=== PATIENT | female | born 1955 | race Caucasian/White ===

== ENCOUNTER 2016-10-18 10:58 | Day surgery (SDC) | payer MEDICAID ==
[~2016-10-18] VITALS: Ht 182.9 cm; Wt 72.0 kg
[2016-10-18 11:56] VITALS: BP 119/84
[2016-10-18] MEDS ORDERED: EMTR1TAB12 PO (12:00)
[2016-10-18] MEDS ORDERED: LACTATED RINGERS 1,000 ML IV SCH (12:03)
[2016-10-18] MEDS ORDERED: LIDOCAINE 1%, 2ML ONE (12:05)
[2016-10-18] MEDS ORDERED: FENTANYL PF 100 MCG/2ML ONE (12:20)
[2016-10-18] MEDS ORDERED: MIDAZOLAM 1 MG/ML, 2ML ONE (12:20)
[2016-10-18] MEDS ORDERED: EFAV600T PO (12:24)
[2016-10-18] MEDS ORDERED: LIDOCAINE 1%, 2ML SQ PRN (12:30)
[2016-10-18] MEDS ORDERED: PROPOFOL 10 MG/ML, 20ML ONE (12:48)
[2016-10-18] MEDS ORDERED: ONDANSETRON 2MG/ML, 2ML IVPush PRN (13:00)
[2016-10-18] MEDS ORDERED: LABETALOL 5MG/ML, 20ML IV PRN (13:00)
[2016-10-18] MEDS ORDERED: PROMETHAZINE 25 MG/ML, 1ML IV PRN (13:00)
[2016-10-18] MEDS ORDERED: METOCLOPRAMIDE 5 MG/ML, 2ML IV PRN (13:00)
[2016-10-18] MEDS ORDERED: OXYcodone 5 MG/5 ML ORAL.SOL UDC PO PRN (13:00)
[2016-10-18] MEDS ORDERED: HYDROmorphone 1 MG/ML, 1ML IV PRN (13:00)
[2016-10-18] MEDS ORDERED: hydrALAzine 20 MG/ML, 1ML IV PRN (13:00)
[2016-10-18] MEDS ORDERED: ACETAMINOPHEN 325 MG TABLET PO PRN (13:00)
[2016-10-18] MEDS ORDERED: FENTANYL PF 100 MCG/2ML IV PRN (13:00)
[2016-10-18] MEDS ORDERED: MEPERIDINE/PF 25MG/0.5ML IVPush PRN (13:00)
[2016-10-18] MEDS ORDERED: ACETAMINOPHEN 650 MG/20.3 ML UDC ONE (13:39)
[2016-10-18] MEDS ORDERED: OXYcodone IR 5MG TABLET ONE (15:19)
[2016-10-18] MEDS ORDERED: OXYcodone IR 5MG TABLET PO PRN (15:30)
== END 2016-10-18 17:00 | disposition home or self-care (01) ==
LOC: OUT 10:58
PROVIDERS: ATTEND Orthopaedic Surgery
DX: I96 Gangrene, not elsewhere classified (principal); F17.210 Nicotine dependence, cigarettes, uncomplicated; B20 Human immunodeficiency virus [HIV] disease
CPT/HCPCS: 28825; 88305; 93005; J2250; J2704; J3010; J3490; J7120

== ENCOUNTER 2020-10-22 15:03 | Inpatient (IN) | payer MEDICAID ==
[~2020-10-22] VITALS: Ht 182.9 cm; Wt 58.7 kg
[~2020-10-22 15:03] MED LIST: ANTIOBIOTIC PO; EFAV600T PO; EMTR1TAB8 PO; UNKNOWN ANTIBIOTIC PO
[2020-10-22] MEDS ORDERED: SODIUM CHLORIDE FLUSH 10ML SYR IVF ONE (15:30)
[2020-10-22 15:46] LABS: BASOPHILS % (AUTO) 1 % (0-1); EOSINOPHILS % (AUTO) 0 % (1-7); LYMPHOCYTES % (AUTO) 6 % (22-44); MEAN CORPUSCULAR HEMOGLOBIN 30.6 pg (27.5-34.5); MEAN PLATELET VOLUME 7.4 fL (7.4-10.4); MONOCYTES % (AUTO) 6 % (2-9); NEUTROPHILS % (AUTO) 87 % (42-75); PLATELET COUNT 417 x10^3/uL (130-400); RED BLOOD COUNT 3.79 x10^6/uL (4.38-5.82); RED CELL DISTRIBUTION WIDTH 13.8 % (9.4-14.8)
[2020-10-22 15:47] LABS: ALBUMIN 2.4 g/dL (3.4-5.0); ANION GAP 6 mmol/L (5-15); CALCIUM 9.5 mg/dL (8.5-10.1); CHLORIDE 102 mmol/L (98-107); CREATININE 0.95 mg/dL (0.7-1.3)
--- NOTE | 2020-10-22 16:43 | NUR ---
PT TO [facility] FROM [facility]
--- NOTE | 2020-10-22 17:19 | NUR ---
ASSUMED CARE OF PATIENT. PATIENT REPORTS HE WAS TESTED FOR COVID TODAY BECAUSE HE HAS HAD A COUGH AND SCRATCHY VOICE X10 DAYS. PT ALSO C/O A LARGE RIGHT NECK ABSCESS. 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 PT SEEN BY DR JAQUEZ. FAMILY AT BEDSIDE. CALL LIGHT IN PLACE. WILL CONTINUE TO MONITOR.
--- NOTE | 2020-10-22 17:38 | NUR ---
PT WENT TO CT
[2020-10-22] MEDS ORDERED: OMNIPAQUE 350 MG/ML, 100ML BOTTLE ONE (17:45)
[2020-10-22] MEDS ORDERED: [UNRECOGNIZED DRUG - OTHER] (17:57)
[2020-10-22] MEDS ORDERED: OXYMETAZOLINE NASAL SPRAY 0.05%,30ML ONE (19:36)
[2020-10-22] MEDS ORDERED: SODIUM CHLORIDE FLUSH 10ML SYR IVF PRN (20:00)
[2020-10-22] MEDS ORDERED: ONDANSETRON 2MG/ML, 2ML IVPush PRN (20:00)
[2020-10-22] MEDS ORDERED: OXYMETAZOLINE NASAL SPRAY 0.05%, 15ML NAS ONE (20:00)
[2020-10-22] MEDS ORDERED: morphine SULFATE 10 MG/ML, 1ML IVPush PRN (20:00)
[2020-10-22] MEDS ORDERED: BISACODYL 10 MG SUPP PR PRN (20:00)
[2020-10-22] MEDS ORDERED: D5%-0.45% NACL 1,000 ML IV SCH (20:00)
--- NOTE | 2020-10-22 21:18 | NUR ---
PT HAS BEEN SEEN BY ENT. PT READY FOR FLOOR.
[2020-10-22] MEDS ORDERED: DEXAMETHASONE 4 MG/ML, 1ML IVPush ONE (21:30)
[2020-10-22] MEDS ORDERED: DEXAMETHASONE 4 MG/ML, 1ML ONE (21:33)
[2020-10-22 22:01] VITALS: BP 106/72
[2020-10-22] MEDS ORDERED: DIPHENHYDRAMINE 50 MG/ML, 1ML IVPush ONE (23:00)
[2020-10-22] MEDS: NICOTINE 21 MG/24 HR PATCH.TD24 TD SCH (23:58)
[2020-10-23 02:00] VITALS: BP 101/68
[2020-10-23 05:02] LABS: BASOPHILS % (AUTO) 0 % (0-1); EOSINOPHILS % (AUTO) 0 % (1-7); LYMPHOCYTES % (AUTO) 4 % (22-44); MEAN CORPUSCULAR HEMOGLOBIN 30.6 pg (27.5-34.5); MEAN CORPUSCULAR HGB CONC 32.9 g/dL (33.2-36.2); MEAN PLATELET VOLUME 7.5 fL (7.4-10.4); MONOCYTES % (AUTO) 1 % (2-9); NEUTROPHILS % (AUTO) 94 % (42-75); PLATELET COUNT 320 x10^3/uL (130-400); RED BLOOD COUNT 3.53 x10^6/uL (4.38-5.82); RED CELL DISTRIBUTION WIDTH 13.9 % (9.4-14.8)
[2020-10-23 05:36] LABS: ANION GAP 6 mmol/L (5-15); CALCIUM 8.8 mg/dL (8.5-10.1); CHLORIDE 103 mmol/L (98-107); CREATININE 0.77 mg/dL (0.7-1.3)
[2020-10-23 07:20] VITALS: BP 90/53
[2020-10-23] MEDS: HEPARIN 5,000 UNITS/ML, 1ML SQ SCH ×2 (07:30→19:29)
[2020-10-23] MEDS: SODIUM CHLORIDE 0.9% 1,000 ML IV SCH ×2 (11:23→19:29)
[2020-10-23 14:16] VITALS: BP 106/72
[2020-10-23] MEDS ORDERED: DEXMEDETOMIDINE 200 MCG/2 ML ONE (14:36)
[2020-10-23] MEDS ORDERED: CHLORHEXIDINE 15 ML UDC PO ONE (15:30)
[2020-10-23] MEDS ORDERED: MIDAZOLAM 1 MG/ML, 2ML ONE (15:38)
[2020-10-23] MEDS ORDERED: FENTANYL PF 100 MCG/2ML ONE (15:38)
[2020-10-23] MEDS ORDERED: LIDOCAINE/PF 1%-EPI 1:200K, 30 ML ONE (15:43)
[2020-10-23] MEDS ORDERED: LIDOCAINE/PF 1%, 30ML ONE (15:51)
[2020-10-23] MEDS ORDERED: EPINEPHRINE 1 MG/ML, 1ML ONE (15:51)
[2020-10-23] MEDS ORDERED: LACTATED RINGERS 1,000 ML IV SCH (16:00)
[2020-10-23] MEDS ORDERED: CEFAZOLIN 1,000 MG ONE (16:00)
[2020-10-23] MEDS ORDERED: LIDOCAINE 2%, 6 ML JEL.PF.APP TP ONE (16:29)
[2020-10-24] MEDS: NICOTINE 21 MG/24 HR PATCH.TD24 TD SCH (00:13)
[2020-10-24 04:42] LABS: % IRON SATURATION 15 % (20-55); IRON LEVEL 28 mcg/dL (65-175); TOTAL IRON BINDING CAPACITY 184 mcg/dL (250-450)
[2020-10-24] MEDS: HEPARIN 5,000 UNITS/ML, 1ML SQ SCH ×2 (07:45→21:08)
[2020-10-24] MEDS: morphine SULFATE 10 MG/ML, 1ML IVPush PRN ×2 (07:46→21:46)
[2020-10-24] MEDS: AMPICILLIN/SULBACTAM 3 GM in SODIUM CHLORIDE 0.9% 100 ML IV SCH ×3 (09:00→21:07)
[2020-10-24] MEDS: SODIUM CHLORIDE 0.9% 1,000 ML IV SCH (11:26)
[2020-10-24] MEDS ORDERED: MAGNESIUM SULFATE PMX 2GM/50ML 50 ML IV ONE (13:00)
[2020-10-24 13:15] LABS: FREE T4 (FREE THYROXINE) 1.46 ng/dL (0.76-1.46)
--- NOTE | 2020-10-24 15:01 | NUR ---
If TF recommendations needed:recommend Promote with goal of 60 ml/hr off propofol, 50 ml/hr on propofol. monitor phosphorous.magnesium with risk of refeeding. Addendum: 10/24/20 at [address] Amended: Links added.
[2020-10-25] MEDS: AMPICILLIN/SULBACTAM 3 GM in SODIUM CHLORIDE 0.9% 100 ML IV SCH ×4 (03:26→20:53)
[2020-10-25] MEDS: NICOTINE 21 MG/24 HR PATCH.TD24 TD SCH (09:00)
[2020-10-25] MEDS: HEPARIN 5,000 UNITS/ML, 1ML SQ SCH ×2 (10:00→20:37)
[2020-10-25] MEDS: SODIUM CHLORIDE 0.9% 1,000 ML IV SCH (10:42)
[2020-10-25] MEDS: morphine SULFATE 10 MG/ML, 1ML IVPush PRN (19:37)
[2020-10-26] MEDS: SODIUM CHLORIDE 0.9% 1,000 ML IV SCH (01:25)
[2020-10-26] MEDS: morphine SULFATE 10 MG/ML, 1ML IVPush PRN (02:06)
[2020-10-26] MEDS: AMPICILLIN/SULBACTAM 3 GM in SODIUM CHLORIDE 0.9% 100 ML IV SCH ×4 (03:47→21:45)
[2020-10-26 04:35] LABS: BASOPHILS % (AUTO) 1 % (0-1); EOSINOPHILS % (AUTO) 1 % (1-7); LYMPHOCYTES % (AUTO) 7 % (22-44); MEAN CORPUSCULAR HGB CONC 33.2 g/dL (33.2-36.2); MEAN PLATELET VOLUME 7.3 fL (7.4-10.4); MONOCYTES % (AUTO) 7 % (2-9); NEUTROPHILS % (AUTO) 86 % (42-75); PLATELET COUNT 273 x10^3/uL (130-400); RED BLOOD COUNT 3.28 x10^6/uL (4.38-5.82); RED CELL DISTRIBUTION WIDTH 14.1 % (9.4-14.8)
[2020-10-26 04:40] LABS: ALBUMIN 1.8 g/dL (3.4-5.0); ANION GAP 10 mmol/L (5-15); CALCIUM 8.8 mg/dL (8.5-10.1); CHLORIDE 109 mmol/L (98-107); CREATININE 0.57 mg/dL (0.7-1.3)
[2020-10-26 04:42] LABS: ALKALINE PHOSPHATASE 53 U/L (45-117); BILIRUBIN,TOTAL 0.5 mg/dL (0.2-1.0)
[2020-10-26 04:57] LABS: ALANINE AMINOTRANSFERASE < 6 U/L (12-78)
[2020-10-26] MEDS: POTASSIUM CHLORIDE 40 MEQ in D5%-0.9% NACL 1,000 ML IV SCH ×2 (07:36→23:45)
[2020-10-26] MEDS ORDERED: CHLORHEXIDINE 15 ML UDC ONE (08:25)
[2020-10-26] MEDS: IRON SUCROSE COMPLEX 100MG/5ML IV SCH (08:39)
[2020-10-26] MEDS: HEPARIN 5,000 UNITS/ML, 1ML SQ SCH ×2 (08:40→21:45)
[2020-10-26] MEDS: NICOTINE 21 MG/24 HR PATCH.TD24 TD SCH (08:55)
[2020-10-26] MEDS: KETOROLAC 30 MG/1 ML IVPush PRN ×3 (12:23→20:29)
[2020-10-26] MEDS ORDERED: FENTANYL PF 100 MCG/2ML ONE (12:40)
[2020-10-26] MEDS ORDERED: MIDAZOLAM 1 MG/ML, 2ML ONE (12:40)
[2020-10-26] MEDS ORDERED: ONDANSETRON 2MG/ML, 2ML ONE (13:17)
[2020-10-26] MEDS ORDERED: PROPOFOL 10 MG/ML, 20ML ONE (13:17)
[2020-10-26] MEDS ORDERED: MIDAZOLAM 1 MG/ML, 2ML IV PRN (14:00)
[2020-10-26] MEDS ORDERED: FENTANYL PF 100 MCG/2ML IV PRN (14:00)
[2020-10-26] MEDS ORDERED: PROMETHAZINE 25 MG/ML, 1ML IVPush PRN (14:00)
[2020-10-26] MEDS ORDERED: LACTATED RINGERS 500 ML IVBOLUS ONE (18:00)
[2020-10-26] MEDS: MORPHINE SULFATE 4 MG/ML, 1ML IVPush PRN (22:15)
[2020-10-27] MEDS: AMPICILLIN/SULBACTAM 3 GM in SODIUM CHLORIDE 0.9% 100 ML IV SCH ×4 (03:15→20:29)
[2020-10-27] MEDS: KETOROLAC 30 MG/1 ML IVPush PRN ×2 (04:04→17:25)
[2020-10-27] MEDS: HEPARIN 5,000 UNITS/ML, 1ML SQ SCH ×2 (08:13→20:29)
[2020-10-27] MEDS: IRON SUCROSE COMPLEX 100MG/5ML IV SCH (08:13)
[2020-10-27] MEDS: NICOTINE 21 MG/24 HR PATCH.TD24 TD SCH (08:15)
[2020-10-27] MEDS: POTASSIUM CHLORIDE 40 MEQ in D5%-0.9% NACL 1,000 ML IV SCH ×2 (08:39→23:09)
[2020-10-27] MEDS ORDERED: EMTR1TAB14 PO (14:45)
[2020-10-27] MEDS ORDERED: FENO145T32 PO (14:45)
[2020-10-27] MEDS ORDERED: FLUT9.9S16 NS (14:45)
[2020-10-27] MEDS ORDERED: APIX5TAB PO (14:45)
[2020-10-27] MEDS ORDERED: DOLU50TA PO (14:45)
[2020-10-27] MEDS: MELATONIN 5 MG TABLET PO PRN (22:21)
[2020-10-28] MEDS: AMPICILLIN/SULBACTAM 3 GM in SODIUM CHLORIDE 0.9% 100 ML IV SCH ×4 (03:44→20:27)
[2020-10-28] MEDS: IRON SUCROSE COMPLEX 100MG/5ML IV SCH (08:49)
[2020-10-28] MEDS: HEPARIN 5,000 UNITS/ML, 1ML SQ SCH ×2 (08:50→20:27)
[2020-10-28] MEDS: ACETAMINOPHEN 325 MG TABLET PO PRN (08:50)
[2020-10-28] MEDS: NICOTINE 21 MG/24 HR PATCH.TD24 TD SCH (09:02)
[2020-10-28] MEDS: OXYcodone IR 5MG TABLET PO PRN ×3 (10:00→20:27)
[2020-10-28] MEDS: DOCUSATE 50 MG/5 ML, 10ML UDC NG SCH (12:19)
[2020-10-28] MEDS: DOLUTEGRAVIR 50MG TAB PO SCH (12:19)
[2020-10-28] MEDS: EMTRICITABINE/TEN. ALAFE. 200-25 TAB PO SCH (12:19)
[2020-10-28] MEDS: POTASSIUM CHLORIDE 40 MEQ in D5%-0.9% NACL 1,000 ML IV SCH (14:22)
[2020-10-28] MEDS: SENNA 176 MG/5 ML ORAL SOL NG SCH (20:27)
[2020-10-28] MEDS: MELATONIN 5 MG TABLET PO PRN (20:27)
[2020-10-28] MEDS: SENNA/DOCUSATE TABLET PO SCH (21:00)
[2020-10-28] MEDS ORDERED: SENNA 176 MG/5 ML ORAL SOL PO PRN (21:00)
[2020-10-29] MEDS: OXYcodone IR 5MG TABLET PO PRN ×4 (01:25→21:24)
[2020-10-29] MEDS: POTASSIUM CHLORIDE 40 MEQ in D5%-0.9% NACL 1,000 ML IV SCH ×2 (03:23→22:50)
[2020-10-29] MEDS: AMPICILLIN/SULBACTAM 3 GM in SODIUM CHLORIDE 0.9% 100 ML IV SCH ×4 (03:23→21:24)
[2020-10-29 06:02] LABS: BASOPHILS % (AUTO) 1 % (0-1); EOSINOPHILS % (AUTO) 1 % (1-7); LYMPHOCYTES % (AUTO) 7 % (22-44); MEAN CORPUSCULAR HEMOGLOBIN 30.9 pg (27.5-34.5); MEAN CORPUSCULAR HGB CONC 32.6 g/dL (33.2-36.2); MEAN PLATELET VOLUME 7.9 fL (7.4-10.4); MONOCYTES % (AUTO) 7 % (2-9); NEUTROPHILS % (AUTO) 84 % (42-75); PLATELET COUNT 201 x10^3/uL (130-400); RED BLOOD COUNT 2.87 x10^6/uL (4.38-5.82); RED CELL DISTRIBUTION WIDTH 14.3 % (9.4-14.8)
[2020-10-29 06:11] LABS: CHLORIDE 113 mmol/L (98-107)
[2020-10-29 06:16] LABS: ANION GAP 4 mmol/L (5-15); CALCIUM 8.2 mg/dL (8.5-10.1); CREATININE 0.51 mg/dL (0.7-1.3)
[2020-10-29] MEDS ORDERED: SODIUM PHOSPHATE 20 MMOL in SODIUM CHLORIDE 0.9% 500 ML IV ONE (06:30)
[2020-10-29] MEDS ORDERED: MAGNESIUM SULFATE PMX 2GM/50ML 50 ML IV ONE (06:30)
[2020-10-29] MEDS ORDERED: ALBUMIN HUMAN 5% 500 ML IV ONE (07:00)
[2020-10-29] MEDS: IRON SUCROSE COMPLEX 100MG/5ML IV SCH (09:14)
[2020-10-29] MEDS: DOLUTEGRAVIR 50MG TAB PO SCH (09:14)
[2020-10-29] MEDS: EMTRICITABINE/TEN. ALAFE. 200-25 TAB PO SCH (09:14)
[2020-10-29] MEDS: NICOTINE 21 MG/24 HR PATCH.TD24 TD SCH (09:15)
[2020-10-29] MEDS: HEPARIN 5,000 UNITS/ML, 1ML SQ SCH ×2 (09:15→21:25)
[2020-10-29] MEDS: DOCUSATE 50 MG/5 ML, 10ML UDC NG SCH (09:16)
[2020-10-29] MEDS: SENNA/DOCUSATE TABLET PO SCH (20:52)
[2020-10-29] MEDS: SENNA 176 MG/5 ML ORAL SOL NG SCH (21:25)
[2020-10-30] MEDS: ACETAMINOPHEN 325 MG TABLET PO PRN ×4 (00:17→23:56)
[2020-10-30] MEDS: OXYcodone IR 5MG TABLET PO PRN ×6 (01:58→23:21)
[2020-10-30] MEDS: AMPICILLIN/SULBACTAM 3 GM in SODIUM CHLORIDE 0.9% 100 ML IV SCH ×2 (03:14→09:50)
[2020-10-30 04:54] LABS: BASOPHILS % (AUTO) 1 % (0-1); EOSINOPHILS % (AUTO) 1 % (1-7); LYMPHOCYTES % (AUTO) 7 % (22-44); MEAN CORPUSCULAR HEMOGLOBIN 30.7 pg (27.5-34.5); MEAN CORPUSCULAR HGB CONC 32.8 g/dL (33.2-36.2); MEAN PLATELET VOLUME 7.9 fL (7.4-10.4); MONOCYTES % (AUTO) 7 % (2-9); NEUTROPHILS % (AUTO) 84 % (42-75); PLATELET COUNT 195 x10^3/uL (130-400); RED BLOOD COUNT 2.77 x10^6/uL (4.38-5.82); RED CELL DISTRIBUTION WIDTH 14.4 % (9.4-14.8)
[2020-10-30 05:02] LABS: CHLORIDE 108 mmol/L (98-107)
[2020-10-30 05:14] LABS: ANION GAP 4 mmol/L (5-15); CALCIUM 7.8 mg/dL (8.5-10.1); CREATININE 0.48 mg/dL (0.7-1.3)
[2020-10-30] MEDS ORDERED: MAGNESIUM SULFATE PMX 2GM/50ML 50 ML IV ONE (06:30)
[2020-10-30] MEDS: DOLUTEGRAVIR 50MG TAB PO SCH (09:51)
[2020-10-30] MEDS: EMTRICITABINE/TEN. ALAFE. 200-25 TAB PO SCH (09:51)
[2020-10-30] MEDS: NICOTINE 21 MG/24 HR PATCH.TD24 TD SCH (09:55)
[2020-10-30] MEDS: IRON SUCROSE COMPLEX 100MG/5ML IV SCH (09:56)
[2020-10-30] MEDS: HEPARIN 5,000 UNITS/ML, 1ML SQ SCH ×2 (09:56→21:43)
[2020-10-30] MEDS: DOCUSATE 50 MG/5 ML, 10ML UDC NG SCH (09:56)
[2020-10-30 14:40] VITALS: BP 112/84
[2020-10-30 18:53] VITALS: BP 125/77
[2020-10-30] MEDS: SENNA 176 MG/5 ML ORAL SOL NG SCH (21:45)
[2020-10-30] MEDS: MELATONIN 5 MG TABLET PO PRN (23:56)
[2020-10-31 00:27] VITALS: BP 134/72
[2020-10-31] MEDS: MORPHINE SULFATE 4 MG/ML, 1ML IVPush PRN ×2 (02:21→16:27)
[2020-10-31] MEDS: OXYcodone IR 5MG TABLET PO PRN ×5 (03:44→22:44)
[2020-10-31] MEDS: ACETAMINOPHEN 325 MG TABLET PO PRN ×2 (05:25→13:19)
[2020-10-31] MEDS: LACTULOSE 20 GM/30 ML UDC PO PRN (05:59)
[2020-10-31 06:16] VITALS: BP 102/66
[2020-10-31] MEDS: EMTRICITABINE/TEN. ALAFE. 200-25 TAB PO SCH (09:00)
[2020-10-31] MEDS: DOCUSATE 50 MG/5 ML, 10ML UDC NG SCH (09:46)
[2020-10-31] MEDS: NICOTINE 21 MG/24 HR PATCH.TD24 TD SCH (09:46)
[2020-10-31] MEDS: HEPARIN 5,000 UNITS/ML, 1ML SQ SCH ×2 (09:46→21:25)
[2020-10-31] MEDS: DOLUTEGRAVIR 50MG TAB PO SCH (10:22)
[2020-10-31 12:41] VITALS: BP 121/74
[2020-10-31] MEDS ORDERED: ACETAMINOPHEN 650 MG/20.3 ML UDC ONE (13:17)
[2020-10-31 19:49] VITALS: BP 99/64
[2020-10-31] MEDS: SENNA 176 MG/5 ML ORAL SOL NG SCH (21:00)
[2020-11-01 02:00] VITALS: BP 101/55
[2020-11-01] MEDS: OXYcodone IR 5MG TABLET PO PRN ×5 (03:44→20:40)
[2020-11-01 06:44] VITALS: BP 116/79
[2020-11-01] MEDS: DOCUSATE 50 MG/5 ML, 10ML UDC NG SCH (07:52)
[2020-11-01] MEDS: NICOTINE 21 MG/24 HR PATCH.TD24 TD SCH (07:53)
[2020-11-01] MEDS: HEPARIN 5,000 UNITS/ML, 1ML SQ SCH ×2 (07:54→20:39)
[2020-11-01 09:25] LABS: BASOPHILS % (AUTO) 0 % (0-1); EOSINOPHILS % (AUTO) 1 % (1-7); LYMPHOCYTES % (AUTO) 5 % (22-44); MEAN CORPUSCULAR HEMOGLOBIN 30.8 pg (27.5-34.5); MEAN CORPUSCULAR HGB CONC 33.3 g/dL (33.2-36.2); MEAN PLATELET VOLUME 8.5 fL (7.4-10.4); MONOCYTES % (AUTO) 7 % (2-9); NEUTROPHILS % (AUTO) 87 % (42-75); PLATELET COUNT 188 x10^3/uL (130-400); RED BLOOD COUNT 2.81 x10^6/uL (4.38-5.82); RED CELL DISTRIBUTION WIDTH 14.4 % (9.4-14.8)
[2020-11-01] MEDS: DOLUTEGRAVIR 50MG TAB PO SCH (09:43)
[2020-11-01] MEDS: EMTRICITABINE/TEN. ALAFE. 200-25 TAB PO SCH (09:43)
[2020-11-01 11:49] LABS: MICROSCOPIC INDICATED
[2020-11-01 14:27] VITALS: BP 89/52
[2020-11-01] MEDS: ACETAMINOPHEN 325 MG TABLET PO PRN ×2 (14:54→23:32)
[2020-11-01] MEDS: SENNA 176 MG/5 ML ORAL SOL NG SCH (20:12)
[2020-11-01 20:47] VITALS: BP 103/65
[2020-11-02 00:28] VITALS: BP_SYST 83; BP_SYST 95; BP_SYST 96; BP_DIAS 41; BP_DIAS 55; BP_DIAS 64
[2020-11-02] MEDS: OXYcodone IR 5MG TABLET PO PRN ×6 (01:14→21:36)
[2020-11-02 05:49] LABS: BASOPHILS % (AUTO) 1 % (0-1); EOSINOPHILS % (AUTO) 2 % (1-7); LYMPHOCYTES % (AUTO) 7 % (22-44); MEAN CORPUSCULAR HEMOGLOBIN 31.1 pg (27.5-34.5); MEAN CORPUSCULAR HGB CONC 33.2 g/dL (33.2-36.2); MEAN PLATELET VOLUME 8.6 fL (7.4-10.4); MONOCYTES % (AUTO) 10 % (2-9); NEUTROPHILS % (AUTO) 81 % (42-75); PLATELET COUNT 196 x10^3/uL (130-400); RED BLOOD COUNT 2.84 x10^6/uL (4.38-5.82)
[2020-11-02 05:59] LABS: ANION GAP 6 mmol/L (5-15); CALCIUM 8.5 mg/dL (8.5-10.1); CHLORIDE 97 mmol/L (98-107)
[2020-11-02 06:00] LABS: CREATININE 0.67 mg/dL (0.7-1.3)
[2020-11-02 07:30] VITALS: BP 95/66
[2020-11-02] MEDS: DOCUSATE 50 MG/5 ML, 10ML UDC NG SCH (09:12)
[2020-11-02] MEDS: NICOTINE 21 MG/24 HR PATCH.TD24 TD SCH (09:13)
[2020-11-02] MEDS: HEPARIN 5,000 UNITS/ML, 1ML SQ SCH ×2 (09:13→21:37)
[2020-11-02] MEDS: DOLUTEGRAVIR 50MG TAB PO SCH (09:30)
[2020-11-02] MEDS: EMTRICITABINE/TEN. ALAFE. 200-25 TAB PO SCH (09:30)
[2020-11-02] MEDS: CEFTRIAXONE 1,000 MG in DEXTROSE 5% 50 ML IVPB SCH (11:37)
[2020-11-02 12:00] VITALS: BP 109/76
[2020-11-02 19:08] VITALS: BP 108/63
[2020-11-02] MEDS: SENNA 176 MG/5 ML ORAL SOL NG SCH (21:36)
[2020-11-03 01:19] VITALS: BP 113/73
[2020-11-03] MEDS: OXYcodone IR 5MG TABLET PO PRN ×5 (01:31→20:04)
[2020-11-03 06:38] VITALS: BP 104/70
[2020-11-03] MEDS: DOCUSATE 50 MG/5 ML, 10ML UDC NG SCH (10:06)
[2020-11-03] MEDS: NICOTINE 21 MG/24 HR PATCH.TD24 TD SCH (10:07)
[2020-11-03] MEDS: EMTRICITABINE/TEN. ALAFE. 200-25 TAB PO SCH (10:07)
[2020-11-03] MEDS: DOLUTEGRAVIR 50MG TAB PO SCH (10:07)
[2020-11-03] MEDS: HEPARIN 5,000 UNITS/ML, 1ML SQ SCH ×2 (10:07→22:03)
[2020-11-03] MEDS: CEFTRIAXONE 1,000 MG in DEXTROSE 5% 50 ML IVPB SCH (11:33)
[2020-11-03 14:12] VITALS: BP 104/67
[2020-11-03 18:21] VITALS: BP 134/82
[2020-11-03] MEDS: SENNA 176 MG/5 ML ORAL SOL NG SCH (21:53)
[2020-11-04] MEDS: OXYcodone IR 5MG TABLET PO PRN ×4 (00:34→22:12)
[2020-11-04 00:46] VITALS: BP 125/72
[2020-11-04 06:21] VITALS: BP 100/69
[2020-11-04] MEDS: CEFTRIAXONE 1,000 MG in DEXTROSE 5% 50 ML IVPB SCH (10:51)
[2020-11-04] MEDS: NICOTINE 21 MG/24 HR PATCH.TD24 TD SCH (10:52)
[2020-11-04] MEDS: HEPARIN 5,000 UNITS/ML, 1ML SQ SCH ×2 (10:52→21:53)
[2020-11-04] MEDS: DOCUSATE 50 MG/5 ML, 10ML UDC NG SCH (10:52)
[2020-11-04] MEDS: DOLUTEGRAVIR 50MG TAB PO SCH (10:53)
[2020-11-04] MEDS: EMTRICITABINE/TEN. ALAFE. 200-25 TAB PO SCH (10:53)
[2020-11-04 12:26] VITALS: BP 91/55
[2020-11-04 18:39] VITALS: BP 108/69
[2020-11-04] MEDS: SENNA 176 MG/5 ML ORAL SOL NG SCH (23:12)
[2020-11-05] MEDS: MORPHINE SULFATE 4 MG/ML, 1ML IVPush PRN ×2 (00:15→09:02)
[2020-11-05 00:30] VITALS: BP_SYST 54; BP_SYST 92; BP_DIAS 54; BP_DIAS 69
[2020-11-05] MEDS: OXYcodone IR 5MG TABLET PO PRN ×5 (02:34→21:50)
[2020-11-05 06:31] VITALS: BP 110/72
[2020-11-05] MEDS: DOCUSATE 50 MG/5 ML, 10ML UDC NG SCH (08:37)
[2020-11-05] MEDS: HEPARIN 5,000 UNITS/ML, 1ML SQ SCH ×2 (08:37→21:50)
[2020-11-05] MEDS: NICOTINE 21 MG/24 HR PATCH.TD24 TD SCH (08:38)
[2020-11-05] MEDS: EMTRICITABINE/TEN. ALAFE. 200-25 TAB PO SCH (08:38)
[2020-11-05] MEDS: DOLUTEGRAVIR 50MG TAB PO SCH (08:38)
[2020-11-05] MEDS: CEFTRIAXONE 1,000 MG in DEXTROSE 5% 50 ML IVPB SCH (11:43)
[2020-11-05 12:19] VITALS: BP 91/62
[2020-11-05 19:08] VITALS: BP 97/60
[2020-11-06 00:03] VITALS: BP 110/72
[2020-11-06] MEDS: MORPHINE SULFATE 4 MG/ML, 1ML IVPush PRN (00:25)
[2020-11-06] MEDS: SENNA 176 MG/5 ML ORAL SOL NG SCH ×2 (00:25→21:25)
[2020-11-06] MEDS: OXYcodone IR 5MG TABLET PO PRN ×5 (03:19→23:37)
[2020-11-06 04:57] LABS: BASOPHILS % (AUTO) 1 % (0-1); EOSINOPHILS % (AUTO) 1 % (1-7); LYMPHOCYTES % (AUTO) 8 % (22-44); MEAN CORPUSCULAR HEMOGLOBIN 31.5 pg (27.5-34.5); MEAN CORPUSCULAR HGB CONC 33.9 g/dL (33.2-36.2); MONOCYTES % (AUTO) 12 % (2-9); NEUTROPHILS % (AUTO) 79 % (42-75); PLATELET COUNT 267 x10^3/uL (130-400); RED BLOOD COUNT 2.73 x10^6/uL (4.38-5.82); RED CELL DISTRIBUTION WIDTH 14.7 % (9.4-14.8)
[2020-11-06 05:00] LABS: ANION GAP 4 mmol/L (5-15); CALCIUM 9.1 mg/dL (8.5-10.1); CHLORIDE 94 mmol/L (98-107)
[2020-11-06 05:01] LABS: CREATININE 0.58 mg/dL (0.7-1.3)
[2020-11-06 07:01] VITALS: BP 118/76
[2020-11-06] MEDS: EMTRICITABINE/TEN. ALAFE. 200-25 TAB PO SCH (09:00)
[2020-11-06] MEDS: NICOTINE 21 MG/24 HR PATCH.TD24 TD SCH (09:43)
[2020-11-06] MEDS: HEPARIN 5,000 UNITS/ML, 1ML SQ SCH ×2 (09:43→21:25)
[2020-11-06] MEDS: DOLUTEGRAVIR 50MG TAB PO SCH (09:43)
[2020-11-06] MEDS: DOCUSATE 50 MG/5 ML, 10ML UDC NG SCH (09:44)
[2020-11-06] MEDS: CEFTRIAXONE 1,000 MG in DEXTROSE 5% 50 ML IVPB SCH (11:24)
[2020-11-06 12:47] VITALS: BP 120/80
[2020-11-06] MEDS: SODIUM CHLORIDE 0.9% 1,000 ML IV SCH (15:21)
[2020-11-06 19:32] VITALS: BP 105/68
[2020-11-07 01:13] VITALS: BP 94/57
[2020-11-07] MEDS: SODIUM CHLORIDE 0.9% 1,000 ML IV SCH ×2 (01:58→11:30)
[2020-11-07] MEDS: LACTULOSE 20 GM/30 ML UDC PO PRN (02:57)
[2020-11-07 06:08] LABS: ANION GAP 7 mmol/L (5-15); CALCIUM 9.1 mg/dL (8.5-10.1); CHLORIDE 98 mmol/L (98-107)
[2020-11-07 06:09] LABS: CREATININE 0.47 mg/dL (0.7-1.3)
[2020-11-07] MEDS: OXYcodone IR 5MG TABLET PO PRN ×2 (06:40→22:02)
[2020-11-07 06:59] VITALS: BP 92/60
[2020-11-07] MEDS: EMTRICITABINE/TEN. ALAFE. 200-25 TAB PO SCH (09:27)
[2020-11-07] MEDS: DOCUSATE 50 MG/5 ML, 10ML UDC NG SCH (09:27)
[2020-11-07] MEDS: DOLUTEGRAVIR 50MG TAB PO SCH (09:27)
[2020-11-07] MEDS: NICOTINE 21 MG/24 HR PATCH.TD24 TD SCH (09:28)
[2020-11-07] MEDS: HEPARIN 5,000 UNITS/ML, 1ML SQ SCH ×2 (09:29→20:36)
[2020-11-07 13:01] VITALS: BP 97/62
[2020-11-07] MEDS ORDERED: OMNIPAQUE 350 MG/ML, 75ML BOTTLE ONE (17:57)
[2020-11-07 19:01] VITALS: BP 98/68
[2020-11-07] MEDS: MORPHINE SULFATE 4 MG/ML, 1ML IVPush PRN (20:37)
[2020-11-07] MEDS: SENNA 176 MG/5 ML ORAL SOL NG SCH (22:03)
[2020-11-08 03:21] VITALS: BP 95/59
[2020-11-08 05:10] LABS: BASOPHILS % (AUTO) 1 % (0-1); EOSINOPHILS % (AUTO) 2 % (1-7); LYMPHOCYTES % (AUTO) 8 % (22-44); MEAN CORPUSCULAR HEMOGLOBIN 31.8 pg (27.5-34.5); MEAN CORPUSCULAR HGB CONC 34.2 g/dL (33.2-36.2); MEAN PLATELET VOLUME 7.7 fL (7.4-10.4); MONOCYTES % (AUTO) 10 % (2-9); NEUTROPHILS % (AUTO) 80 % (42-75); PLATELET COUNT 268 x10^3/uL (130-400); RED CELL DISTRIBUTION WIDTH 14.4 % (9.4-14.8)
[2020-11-08 06:47] VITALS: BP 94/58
[2020-11-08] MEDS: DOCUSATE 50 MG/5 ML, 10ML UDC NG SCH (08:17)
[2020-11-08] MEDS: HEPARIN 5,000 UNITS/ML, 1ML SQ SCH ×2 (08:18→20:13)
[2020-11-08] MEDS: OXYcodone IR 5MG TABLET PO PRN ×2 (08:19→15:24)
[2020-11-08] MEDS: EMTRICITABINE/TEN. ALAFE. 200-25 TAB PO SCH (08:20)
[2020-11-08] MEDS: DOLUTEGRAVIR 50MG TAB PO SCH (08:20)
[2020-11-08] MEDS: NICOTINE 21 MG/24 HR PATCH.TD24 TD SCH (08:23)
[2020-11-08 12:12] VITALS: BP 89/57
[2020-11-08 19:10] VITALS: BP 104/65
[2020-11-08] MEDS: MORPHINE SULFATE 4 MG/ML, 1ML IVPush PRN (20:14)
[2020-11-08] MEDS: SENNA 176 MG/5 ML ORAL SOL NG SCH (21:52)
[2020-11-09 00:28] VITALS: BP 105/64
[2020-11-09] MEDS: OXYcodone IR 5MG TABLET PO PRN ×5 (00:45→19:35)
[2020-11-09 06:48] VITALS: BP 98/66
[2020-11-09] MEDS: NICOTINE 21 MG/24 HR PATCH.TD24 TD SCH (09:15)
[2020-11-09] MEDS: HEPARIN 5,000 UNITS/ML, 1ML SQ SCH ×2 (09:15→22:09)
[2020-11-09] MEDS: DOCUSATE 50 MG/5 ML, 10ML UDC NG SCH (10:06)
[2020-11-09] MEDS: DOLUTEGRAVIR 50MG TAB PO SCH (11:22)
[2020-11-09] MEDS: EMTRICITABINE/TEN. ALAFE. 200-25 TAB PO SCH (11:22)
[2020-11-09 14:26] VITALS: BP 96/65
[2020-11-09 20:24] VITALS: BP 100/65
[2020-11-09] MEDS: MORPHINE SULFATE 4 MG/ML, 1ML IVPush PRN (22:43)
[2020-11-10 00:53] VITALS: BP 100/72
[2020-11-10] MEDS: OXYcodone IR 5MG TABLET PO PRN ×4 (01:00→20:33)
[2020-11-10] MEDS: SENNA 176 MG/5 ML ORAL SOL NG SCH ×3 (01:04→20:41)
[2020-11-10 07:19] VITALS: BP 93/58
[2020-11-10] MEDS: DOLUTEGRAVIR 50MG TAB PO SCH (08:43)
[2020-11-10] MEDS: EMTRICITABINE/TEN. ALAFE. 200-25 TAB PO SCH (08:43)
[2020-11-10] MEDS: NICOTINE 21 MG/24 HR PATCH.TD24 TD SCH (08:43)
[2020-11-10] MEDS: HEPARIN 5,000 UNITS/ML, 1ML SQ SCH ×2 (08:43→20:34)
[2020-11-10] MEDS: DOCUSATE 50 MG/5 ML, 10ML UDC NG SCH (08:43)
[2020-11-10 14:54] VITALS: BP 101/67
[2020-11-10 19:30] VITALS: BP 103/71
[2020-11-11 01:12] VITALS: BP 92/61
[2020-11-11] MEDS: OXYcodone IR 5MG TABLET PO PRN ×4 (01:59→20:20)
[2020-11-11 07:07] VITALS: BP 104/62
[2020-11-11] MEDS: NICOTINE 21 MG/24 HR PATCH.TD24 TD SCH (09:17)
[2020-11-11] MEDS: DOLUTEGRAVIR 50MG TAB PO SCH (09:17)
[2020-11-11] MEDS: EMTRICITABINE/TEN. ALAFE. 200-25 TAB PO SCH (09:17)
[2020-11-11] MEDS: DOCUSATE 50 MG/5 ML, 10ML UDC NG SCH (09:17)
[2020-11-11] MEDS: HEPARIN 5,000 UNITS/ML, 1ML SQ SCH ×2 (09:18→20:21)
[2020-11-11] MEDS ORDERED: OMNIPAQUE 350 MG/ML, 100ML BOTTLE ONE (10:34)
[2020-11-11] MEDS: MORPHINE SULFATE 4 MG/ML, 1ML IVPush PRN (11:09)
[2020-11-11 12:08] VITALS: BP 92/60
[2020-11-11 19:15] VITALS: BP 85/54
[2020-11-11 20:04] VITALS: BP 93/59
[2020-11-11] MEDS: SENNA 176 MG/5 ML ORAL SOL NG SCH (20:12)
[2020-11-11] MEDS: MELATONIN 5 MG TABLET PO PRN (22:36)
[2020-11-12 01:51] VITALS: BP 91/59
[2020-11-12] MEDS: OXYcodone IR 5MG TABLET PO PRN ×3 (04:12→20:30)
[2020-11-12 05:59] LABS: BASOPHILS % (AUTO) 1 % (0-1); EOSINOPHILS % (AUTO) 1 % (1-7); LYMPHOCYTES % (AUTO) 8 % (22-44); MEAN CORPUSCULAR HEMOGLOBIN 30.9 pg (27.5-34.5); MEAN CORPUSCULAR HGB CONC 33.9 g/dL (33.2-36.2); MEAN PLATELET VOLUME 7.9 fL (7.4-10.4); MONOCYTES % (AUTO) 10 % (2-9); NEUTROPHILS % (AUTO) 81 % (42-75); PLATELET COUNT 348 x10^3/uL (130-400); RED BLOOD COUNT 2.66 x10^6/uL (4.38-5.82); RED CELL DISTRIBUTION WIDTH 14.3 % (9.4-14.8)
[2020-11-12 06:09] LABS: ANION GAP 6 mmol/L (5-15); CALCIUM 9.8 mg/dL (8.5-10.1); CHLORIDE 92 mmol/L (98-107)
[2020-11-12 06:10] LABS: CREATININE 0.82 mg/dL (0.7-1.3)
[2020-11-12 07:02] VITALS: BP 91/54
[2020-11-12] MEDS: EMTRICITABINE/TEN. ALAFE. 200-25 TAB PO SCH (08:52)
[2020-11-12] MEDS: DOCUSATE 50 MG/5 ML, 10ML UDC NG SCH (08:52)
[2020-11-12] MEDS: HEPARIN 5,000 UNITS/ML, 1ML SQ SCH ×2 (08:52→20:29)
[2020-11-12] MEDS: DOLUTEGRAVIR 50MG TAB PO SCH (08:52)
[2020-11-12] MEDS: NICOTINE 21 MG/24 HR PATCH.TD24 TD SCH (09:02)
[2020-11-12 12:02] VITALS: BP 99/66
[2020-11-12 19:05] VITALS: BP 93/60
[2020-11-12 19:56] VITALS: BP 97/61
[2020-11-12] MEDS: SODIUM CHLORIDE 1 GM TABLET GT SCH (20:30)
[2020-11-12] MEDS: MELATONIN 5 MG TABLET PO PRN (20:31)
[2020-11-12] MEDS: SENNA 176 MG/5 ML ORAL SOL NG SCH (22:12)
[2020-11-13 00:41] VITALS: BP 91/56
[2020-11-13 05:11] LABS: BASOPHILS % (AUTO) 0 % (0-1); EOSINOPHILS % (AUTO) 1 % (1-7); LYMPHOCYTES % (AUTO) 6 % (22-44); MEAN CORPUSCULAR HEMOGLOBIN 31.2 pg (27.5-34.5); MEAN CORPUSCULAR HGB CONC 34.1 g/dL (33.2-36.2); MEAN PLATELET VOLUME 7.7 fL (7.4-10.4); MONOCYTES % (AUTO) 10 % (2-9); NEUTROPHILS % (AUTO) 83 % (42-75); PLATELET COUNT 356 x10^3/uL (130-400); RED BLOOD COUNT 2.74 x10^6/uL (4.38-5.82); RED CELL DISTRIBUTION WIDTH 13.9 % (9.4-14.8)
[2020-11-13 05:25] LABS: ANION GAP 8 mmol/L (5-15); CHLORIDE 92 mmol/L (98-107); CREATININE 0.67 mg/dL (0.7-1.3)
[2020-11-13] MEDS: HEPARIN 5,000 UNITS/ML, 1ML SQ SCH ×2 (07:08→21:40)
[2020-11-13] MEDS: LACTULOSE 20 GM/30 ML UDC PO PRN (09:21)
[2020-11-13] MEDS: DOLUTEGRAVIR 50MG TAB PO SCH (09:21)
[2020-11-13] MEDS: EMTRICITABINE/TEN. ALAFE. 200-25 TAB PO SCH (09:21)
[2020-11-13] MEDS: DOCUSATE 50 MG/5 ML, 10ML UDC NG SCH (09:21)
[2020-11-13] MEDS: SODIUM CHLORIDE 1 GM TABLET GT SCH ×2 (09:22→21:40)
[2020-11-13] MEDS: OXYcodone IR 5MG TABLET PO PRN ×2 (10:19→19:46)
[2020-11-13] MEDS: NICOTINE 21 MG/24 HR PATCH.TD24 TD SCH (10:19)
[2020-11-13] MEDS ORDERED: PROPOFOL 50 ML ONE (11:44)
[2020-11-13 12:24] VITALS: BP 88/55
[2020-11-13 12:34] VITALS: BP 85/56
[2020-11-13] MEDS ORDERED: SODIUM CHLORIDE 0.9%, 250ML IVBOLUS ONE ×2 (13:00→21:30)
[2020-11-13] MEDS ORDERED: ALBUMIN HUMAN 25% 100 ML IV ONE (14:00)
[2020-11-13] MEDS ORDERED: ONDANSETRON 2MG/ML, 2ML IVPush PRN (14:30)
[2020-11-13 19:42] VITALS: BP 85/55
[2020-11-13] MEDS: MELATONIN 5 MG TABLET PO PRN (21:40)
[2020-11-13] MEDS: MORPHINE SULFATE 4 MG/ML, 1ML IVPush PRN (22:06)
[2020-11-13] MEDS: ALBUMIN HUMAN 25% 100 ML IV SCH (23:14)
[2020-11-14] VITALS (8 sets, daily range): BP systolic 91–127; BP diastolic 52–75
[2020-11-14] MEDS: SENNA 176 MG/5 ML ORAL SOL NG SCH ×2 (02:25→21:05)
[2020-11-14] MEDS: OXYcodone IR 5MG TABLET PO PRN ×4 (03:14→23:04)
[2020-11-14] MEDS: ALBUMIN HUMAN 25% 100 ML IV SCH ×2 (05:27→11:45)
[2020-11-14 05:36] LABS: BASOPHILS % (AUTO) 0 % (0-1); EOSINOPHILS % (AUTO) 1 % (1-7); LYMPHOCYTES % (AUTO) 5 % (22-44); MEAN CORPUSCULAR HEMOGLOBIN 30.8 pg (27.5-34.5); MEAN CORPUSCULAR HGB CONC 33.7 g/dL (33.2-36.2); MEAN PLATELET VOLUME 7.9 fL (7.4-10.4); MONOCYTES % (AUTO) 10 % (2-9); NEUTROPHILS % (AUTO) 84 % (42-75); PLATELET COUNT 348 x10^3/uL (130-400); RED BLOOD COUNT 2.58 x10^6/uL (4.38-5.82); RED CELL DISTRIBUTION WIDTH 14.2 % (9.4-14.8)
[2020-11-14 05:50] LABS: ANION GAP 6 mmol/L (5-15); CALCIUM 10.1 mg/dL (8.5-10.1); CHLORIDE 95 mmol/L (98-107)
[2020-11-14 05:53] LABS: CREATININE 0.73 mg/dL (0.7-1.3)
[2020-11-14] MEDS: NICOTINE 21 MG/24 HR PATCH.TD24 TD SCH (10:24)
[2020-11-14] MEDS: DOCUSATE 50 MG/5 ML, 10ML UDC NG SCH (10:24)
[2020-11-14] MEDS: HEPARIN 5,000 UNITS/ML, 1ML SQ SCH ×2 (10:25→20:49)
[2020-11-14] MEDS: EMTRICITABINE/TEN. ALAFE. 200-25 TAB PO SCH (10:25)
[2020-11-14] MEDS: DOLUTEGRAVIR 50MG TAB PO SCH (10:25)
[2020-11-14] MEDS: SODIUM CHLORIDE 1 GM TABLET GT SCH ×2 (10:25→20:49)
[2020-11-14] MEDS ORDERED: ACETAMINOPHEN 325 MG TABLET PO ONE (13:30)
[2020-11-14] MEDS: MORPHINE SULFATE 4 MG/ML, 1ML IVPush PRN (13:53)
[2020-11-14] MEDS ORDERED: DIPHENHYDRAMINE 12.5MG/5ML, 10ML UDC PO ONE (14:00)
[2020-11-15 00:35] VITALS: BP 117/68
[2020-11-15] MEDS: MORPHINE SULFATE 4 MG/ML, 1ML IVPush PRN ×2 (00:58→18:00)
[2020-11-15] MEDS: OXYcodone IR 5MG TABLET PO PRN ×3 (03:30→21:28)
[2020-11-15 05:09] LABS: BASOPHILS % (AUTO) 1 % (0-1); EOSINOPHILS % (AUTO) 0 % (1-7); LYMPHOCYTES % (AUTO) 4 % (22-44); MEAN CORPUSCULAR HEMOGLOBIN 30.7 pg (27.5-34.5); MEAN CORPUSCULAR HGB CONC 33.6 g/dL (33.2-36.2); MONOCYTES % (AUTO) 10 % (2-9); NEUTROPHILS % (AUTO) 85 % (42-75); PLATELET COUNT 356 x10^3/uL (130-400); RED BLOOD COUNT 3.15 x10^6/uL (4.38-5.82); RED CELL DISTRIBUTION WIDTH 14.1 % (9.4-14.8)
[2020-11-15 05:11] LABS: ANION GAP 7 mmol/L (5-15); CALCIUM 10.1 mg/dL (8.5-10.1); CHLORIDE 95 mmol/L (98-107); CREATININE 0.63 mg/dL (0.7-1.3)
[2020-11-15 06:30] VITALS: BP 119/72
[2020-11-15] MEDS ORDERED: SODIUM CHLORIDE 0.9%, 500ML IVBOLUS ONE (07:30)
[2020-11-15] MEDS: SODIUM CHLORIDE 1 GM TABLET GT SCH ×2 (08:19→21:28)
[2020-11-15] MEDS: HEPARIN 5,000 UNITS/ML, 1ML SQ SCH ×2 (08:19→21:29)
[2020-11-15] MEDS: EMTRICITABINE/TEN. ALAFE. 200-25 TAB PO SCH (08:19)
[2020-11-15] MEDS: DOLUTEGRAVIR 50MG TAB PO SCH (08:19)
[2020-11-15] MEDS: DOCUSATE 50 MG/5 ML, 10ML UDC NG SCH (08:19)
[2020-11-15] MEDS: NICOTINE 21 MG/24 HR PATCH.TD24 TD SCH (08:28)
[2020-11-15 08:37] LABS: MICROSCOPIC INDICATED
[2020-11-15] MEDS: PIPERACILLIN/TAZO 3.375 GM in DEXTROSE 5% 50 ML IV SCH ×3 (11:39→23:29)
[2020-11-15 12:25] VITALS: BP 102/63
[2020-11-15 19:03] VITALS: BP 95/58
[2020-11-15] MEDS: SENNA 176 MG/5 ML ORAL SOL NG SCH (21:28)
[2020-11-16 00:55] VITALS: BP 108/65
[2020-11-16] MEDS: OXYcodone IR 5MG TABLET PO PRN ×4 (01:31→21:12)
[2020-11-16] MEDS: MORPHINE SULFATE 4 MG/ML, 1ML IVPush PRN ×3 (04:59→18:36)
[2020-11-16] MEDS: PIPERACILLIN/TAZO 3.375 GM in DEXTROSE 5% 50 ML IV SCH ×5 (04:59→23:24)
[2020-11-16 05:26] LABS: BASOPHILS % (AUTO) 0 % (0-1); EOSINOPHILS % (AUTO) 1 % (1-7); LYMPHOCYTES % (AUTO) 6 % (22-44); MEAN CORPUSCULAR HEMOGLOBIN 30.8 pg (27.5-34.5); MEAN CORPUSCULAR HGB CONC 33.9 g/dL (33.2-36.2); MEAN PLATELET VOLUME 7.8 fL (7.4-10.4); MONOCYTES % (AUTO) 12 % (2-9); NEUTROPHILS % (AUTO) 81 % (42-75); PLATELET COUNT 337 x10^3/uL (130-400); RED BLOOD COUNT 3.12 x10^6/uL (4.38-5.82)
[2020-11-16 05:38] LABS: ANION GAP 5 mmol/L (5-15); CALCIUM 10.1 mg/dL (8.5-10.1); CHLORIDE 94 mmol/L (98-107)
[2020-11-16 05:43] LABS: CREATININE 0.59 mg/dL (0.7-1.3)
[2020-11-16 07:32] VITALS: BP 104/65
[2020-11-16] MEDS: SODIUM CHLORIDE 1 GM TABLET GT SCH ×3 (09:00→21:12)
[2020-11-16] MEDS: DOCUSATE 50 MG/5 ML, 10ML UDC NG SCH (09:21)
[2020-11-16] MEDS: HEPARIN 5,000 UNITS/ML, 1ML SQ SCH ×2 (09:21→21:11)
[2020-11-16] MEDS: LACTULOSE 20 GM/30 ML UDC PO PRN (09:21)
[2020-11-16] MEDS: DOLUTEGRAVIR 50MG TAB PO SCH (09:22)
[2020-11-16] MEDS: NICOTINE 21 MG/24 HR PATCH.TD24 TD SCH (09:22)
[2020-11-16] MEDS: EMTRICITABINE/TEN. ALAFE. 200-25 TAB PO SCH (09:22)
[2020-11-16 12:16] VITALS: BP 105/65
[2020-11-16 18:29] VITALS: BP 94/56
[2020-11-16] MEDS: SENNA 176 MG/5 ML ORAL SOL NG SCH (21:16)
[2020-11-16] MEDS: MELATONIN 5 MG TABLET PO PRN (21:17)
[2020-11-17 00:34] VITALS: BP 87/58
[2020-11-17] MEDS: ACETAMINOPHEN 325 MG TABLET PO PRN ×2 (01:15→21:44)
[2020-11-17] MEDS ORDERED: SODIUM CHLORIDE 0.9%, 500ML IVBOLUS ONE (01:30)
[2020-11-17] MEDS: OXYcodone IR 5MG TABLET PO PRN ×4 (02:52→23:31)
[2020-11-17] MEDS: PIPERACILLIN/TAZO 3.375 GM in DEXTROSE 5% 50 ML IV SCH ×4 (04:48→23:04)
[2020-11-17 04:55] LABS: ANION GAP 5 mmol/L (5-15); BASOPHILS % (AUTO) 1 % (0-1); CALCIUM 10.2 mg/dL (8.5-10.1); CHLORIDE 96 mmol/L (98-107); CREATININE 0.59 mg/dL (0.7-1.3); EOSINOPHILS % (AUTO) 2 % (1-7); LYMPHOCYTES % (AUTO) 7 % (22-44); MEAN CORPUSCULAR HGB CONC 33.8 g/dL (33.2-36.2); MEAN PLATELET VOLUME 7.5 fL (7.4-10.4); MONOCYTES % (AUTO) 11 % (2-9); NEUTROPHILS % (AUTO) 81 % (42-75); PLATELET COUNT 310 x10^3/uL (130-400); RED BLOOD COUNT 2.79 x10^6/uL (4.38-5.82); RED CELL DISTRIBUTION WIDTH 14.3 % (9.4-14.8)
[2020-11-17 06:33] VITALS: BP 93/57
[2020-11-17] MEDS: DOCUSATE 50 MG/5 ML, 10ML UDC NG SCH (09:29)
[2020-11-17] MEDS: DOLUTEGRAVIR 50MG TAB PO SCH (09:29)
[2020-11-17] MEDS: EMTRICITABINE/TEN. ALAFE. 200-25 TAB PO SCH (09:29)
[2020-11-17] MEDS: SODIUM CHLORIDE 1 GM TABLET GT SCH ×3 (09:29→19:30)
[2020-11-17] MEDS: HEPARIN 5,000 UNITS/ML, 1ML SQ SCH ×2 (09:30→21:43)
[2020-11-17] MEDS: NICOTINE 21 MG/24 HR PATCH.TD24 TD SCH (09:30)
[2020-11-17 12:35] VITALS: BP 110/68
[2020-11-17 18:49] VITALS: BP 99/62
[2020-11-17] MEDS: SENNA 176 MG/5 ML ORAL SOL NG SCH (19:36)
[2020-11-17] MEDS: MELATONIN 5 MG TABLET PO PRN (21:44)
[2020-11-18 01:43] VITALS: BP 92/54
[2020-11-18] MEDS: PIPERACILLIN/TAZO 3.375 GM in DEXTROSE 5% 50 ML IV SCH ×4 (04:41→23:03)
[2020-11-18 06:28] VITALS: BP 106/66
[2020-11-18] MEDS: DOLUTEGRAVIR 50MG TAB PO SCH (08:52)
[2020-11-18] MEDS: DOCUSATE 50 MG/5 ML, 10ML UDC NG SCH (08:52)
[2020-11-18] MEDS: EMTRICITABINE/TEN. ALAFE. 200-25 TAB PO SCH (08:52)
[2020-11-18] MEDS: SODIUM CHLORIDE 1 GM TABLET GT SCH ×3 (08:52→22:25)
[2020-11-18] MEDS: HEPARIN 5,000 UNITS/ML, 1ML SQ SCH ×2 (08:53→22:25)
[2020-11-18] MEDS: NICOTINE 21 MG/24 HR PATCH.TD24 TD SCH (08:58)
[2020-11-18] MEDS: OXYcodone IR 5MG TABLET PO PRN ×4 (08:59→22:26)
[2020-11-18 12:02] VITALS: BP 103/64
[2020-11-18] MEDS: MORPHINE SULFATE 4 MG/ML, 1ML IVPush PRN (16:44)
[2020-11-18 18:59] VITALS: BP 106/69
[2020-11-18] MEDS: MELATONIN 5 MG TABLET PO PRN (22:25)
[2020-11-18] MEDS: SENNA 176 MG/5 ML ORAL SOL NG SCH (23:01)
[2020-11-19] MEDS: ACETAMINOPHEN 325 MG TABLET PO PRN (01:15)
[2020-11-19 01:42] VITALS: BP 97/62
[2020-11-19] MEDS: OXYcodone IR 5MG TABLET PO PRN ×4 (02:30→20:39)
[2020-11-19] MEDS: PIPERACILLIN/TAZO 3.375 GM in DEXTROSE 5% 50 ML IV SCH ×4 (05:06→23:14)
[2020-11-19 06:39] VITALS: BP 92/54
[2020-11-19] MEDS: DOCUSATE 50 MG/5 ML, 10ML UDC NG SCH (08:56)
[2020-11-19] MEDS: HEPARIN 5,000 UNITS/ML, 1ML SQ SCH ×2 (08:57→20:38)
[2020-11-19] MEDS: NICOTINE 21 MG/24 HR PATCH.TD24 TD SCH (08:57)
[2020-11-19] MEDS: SODIUM CHLORIDE 1 GM TABLET GT SCH ×3 (08:57→20:38)
[2020-11-19] MEDS: DOLUTEGRAVIR 50MG TAB PO SCH (08:58)
[2020-11-19] MEDS: EMTRICITABINE/TEN. ALAFE. 200-25 TAB PO SCH (08:58)
[2020-11-19 12:42] VITALS: BP 93/59
[2020-11-19] MEDS: MORPHINE SULFATE 4 MG/ML, 1ML IVPush PRN (18:07)
[2020-11-19 18:52] VITALS: BP 90/56
[2020-11-19] MEDS: MELATONIN 5 MG TABLET PO PRN (23:14)
[2020-11-19] MEDS: SENNA 176 MG/5 ML ORAL SOL NG SCH (23:14)
[2020-11-20 00:04] VITALS: BP 102/68
[2020-11-20] MEDS: MORPHINE SULFATE 4 MG/ML, 1ML IVPush PRN ×2 (00:05→12:55)
[2020-11-20] MEDS: OXYcodone IR 5MG TABLET PO PRN (04:44)
[2020-11-20] MEDS: PIPERACILLIN/TAZO 3.375 GM in DEXTROSE 5% 50 ML IV SCH ×2 (05:05→11:06)
[2020-11-20 07:31] VITALS: BP 93/58
[2020-11-20] MEDS: DOCUSATE 50 MG/5 ML, 10ML UDC NG SCH (09:05)
[2020-11-20] MEDS: DOLUTEGRAVIR 50MG TAB PO SCH (09:05)
[2020-11-20] MEDS: HEPARIN 5,000 UNITS/ML, 1ML SQ SCH (09:05)
[2020-11-20] MEDS: EMTRICITABINE/TEN. ALAFE. 200-25 TAB PO SCH (09:05)
[2020-11-20] MEDS: SODIUM CHLORIDE 1 GM TABLET GT SCH (09:05)
[2020-11-20] MEDS: NICOTINE 21 MG/24 HR PATCH.TD24 TD SCH (09:05)
[2020-11-20 13:19] VITALS: BP 109/67
== END 2020-11-20 15:25 | disposition hospice, home (50) | DRG 98 ==
LOC: EDSEX 15:03 → ED 17:43 → EDIP 19:57 → 3N 22:05 → CCU 10-23 17:42 → 4NW 10-30 14:34 → 4NE 10-31 00:44 → 4NW 11-12 21:43
PROVIDERS: ADMIT Family Medicine; ATTEND Family Medicine
PROC: 0CBS8ZX Excision of Larynx, Via Natural or Artificial Opening Endoscopic, Diagnostic (ICD-10-PCS; 2020-10-23)
PROC: 07B73ZX Excision of Thorax Lymphatic, Percutaneous Approach, Diagnostic (ICD-10-PCS; 2020-10-23)
PROC: 0B110F4 Bypass Trachea to Cutaneous with Tracheostomy Device, Open Approach (ICD-10-PCS; principal; 2020-10-23 15:30)
PROC: 0DH63UZ Insertion of Feeding Device into Stomach, Percutaneous Approach (ICD-10-PCS; 2020-10-26)
PROC: 0B998ZZ Drainage of Lingula Bronchus, Via Natural or Artificial Opening Endoscopic (ICD-10-PCS; 2020-11-13)
PROC: 0B918ZZ Drainage of Trachea, Via Natural or Artificial Opening Endoscopic (ICD-10-PCS; 2020-11-13)
PROC: 30233N1 Transfusion of Nonautologous Red Blood Cells into Peripheral Vein, Percutaneous Approach (ICD-10-PCS; 2020-11-14)
DX: C32.9 Malignant neoplasm of larynx, unspecified (principal); J69.0 Pneumonitis due to inhalation of food and vomit; E43 Unspecified severe protein-calorie malnutrition; C77.0 Secondary and unspecified malignant neoplasm of lymph nodes of head, face and neck; B20 Human immunodeficiency virus [HIV] disease; C78.1 Secondary malignant neoplasm of mediastinum; E87.1 Hypo-osmolality and hyponatremia; I95.9 Hypotension, unspecified; Z20.822 Contact with and (suspected) exposure to COVID-19; C79.89 Secondary malignant neoplasm of other specified sites; F17.210 Nicotine dependence, cigarettes, uncomplicated; D72.829 Elevated white blood cell count, unspecified; D50.9 Iron deficiency anemia, unspecified; Z66 Do not resuscitate; Z51.5 Encounter for palliative care; J98.11 Atelectasis; R09.02 Hypoxemia; Z79.01 Long term (current) use of anticoagulants; Z79.899 Other long term (current) drug therapy; Z82.0 Family history of epilepsy and other diseases of the nervous system; Z83.3 Family history of diabetes mellitus; Z86.718 Personal history of other venous thrombosis and embolism; Z89.431 Acquired absence of right foot; Z89.432 Acquired absence of left foot
CPT/HCPCS: 36415; 74230; 96374; 99285; J3490; J7042; 31502; 31622; 31629; 31652; 70491; 71045; 71260; 74177; 80048; 80053; 81001; 82040; 82533; 82607; 82728; 82962; 83540; 83550; 83605; 83735; 84100; 84439; 84443; 85025; 86850; 86900; 86923; 87040; 87070; 87081; 87205; 87635; 88172; 88173; 88305; 88342; 93005; B4087; G0378; J0171; J0295; J0690; J0696; J1100; J1644; J1756; J1885; J2250; J2405; J2543; J2704; J3010; J3480; J7120; P9045; P9047; Q9967; J1200; J2270; J3475; J7030; J7040; J7050; P9016